=== PATIENT | female | born 1975 | race Caucasian/White ===

== ENCOUNTER 2025-01-06 21:26 | Emergency (ER) | payer OTHER ==
[~2025-01-06] VITALS: Ht 160 cm; Wt 71.0 kg
[~2025-01-06 21:26] MED LIST: CHOL400T56 PO; FOLI-130 PO; LEVO25TA9 PO; OMEP10CA38 PO
[2025-01-06 23:06] LABS: PLATELET COUNT (AUTO) 304 K/uL (150-450); RED BLOOD CELL COUNT(AUTO) 4.67 MIL/uL (4.00-5.20); RED CELL DISTRIBUTION WIDTH 15.5 % (11.5-14.5); WHITE BLOOD COUNT (AUTO) 8.0 K/uL (4.5-11.0)
[2025-01-06 23:11] LABS: CALCIUM, TOTAL 8.3 mg/dL (8.8-10.5); CREATININE 0.72 mg/dL (0.60-1.30); GLOMERULAR FILTR. RATE CALC > 60 mL/min (>60); GLUCOSE,RANDOM 137 mg/dL (70-110); SODIUM SERUM 134 mmol/L (136-145); UREA NITROGEN, BLOOD 16 mg/dL (7-18)
[2025-01-06 23:20] LABS: ASPARTATE AMINOTRANSFERASE 22.0 U/L (15-37); TOTAL PROTEIN, SERUM 7.7 g/dL (6.4-8.2)
[2025-01-07] MEDS: MORPHINE SULFATE 2 MG/ML SYRINGE IM ONE (00:31)
[2025-01-07 00:49] VITALS: BP 145/89; PULSE 84; RESP 18; TEMP 97.9; O2SAT 98
[2025-01-07] MEDS ORDERED: LOPE-232 PO (00:52)
[2025-01-07] MEDS: SIMETHICONE 80 MG CHEWABLE TABLET CHEW ONE (01:33)
[2025-01-07] MEDS: LOPERAMIDE HCL 2 MG CAPSULE PO ONE (01:33)
== END 2025-01-07 02:13 | disposition home or self-care (01) ==
LOC: EMS 21:32
DX: I73.00 Raynaud's syndrome without gangrene (principal); R19.7 Diarrhea, unspecified; E03.9 Hypothyroidism, unspecified; K21.9 Gastro-esophageal reflux disease without esophagitis; Z79.899 Other long term (current) drug therapy
CPT/HCPCS: 99283; 80048; 80076; 83735; 85025; 36415; 96372; J2270